=== PATIENT | male | born 1940 | race Caucasian/White ===

== ENCOUNTER → 2016-09-22 | Outpatient (CLI) | payer MEDICARE, OTHER | END | disposition home or self-care (01) | LOC: GMAM 11:03 | PROVIDERS: ATTEND Family Medicine | DX: Z12.5 Encounter for screening for malignant neoplasm of prostate (principal) ==

== ENCOUNTER → 2016-10-05 | Outpatient (CLI) | payer MEDICARE, OTHER ==
--- NOTE | 2016-10-05 14:55 | US ---
EXAM DESCRIPTION: Aorta CLINICAL HISTORY: 76 years Male, HISTORY OF TOBACCO USE TECHNIQUE: Grayscale, color Doppler and spectral Doppler imaging of the abdominal aorta was performed. FINDINGS: Atherosclerotic disease noted throughout today's exam. The proximal abdominal aorta measures 2.5 x 2.8 cm. The mid abdominal aorta measures 1.8 x 2.6 cm in the distal abdominal aorta measures 2.4 x 2.0 cm in diameter. 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 Electronically signed by: Duke Callahan MD 10/05/2016 2:55 PM CDT
== END | disposition home or self-care (01) ==
LOC: US 09:09
PROVIDERS: ATTEND Family Medicine
DX: Z87.891 Personal history of nicotine dependence (principal); I25.10 Atherosclerotic heart disease of native coronary artery without angina pectoris

== ENCOUNTER → 2017-10-21 | Outpatient (CLI) | payer MEDICARE, OTHER | LOC: GMAM 11:08 | PROVIDERS: ATTEND Family Medicine | DX: Z12.5 Encounter for screening for malignant neoplasm of prostate (principal) ==

== ENCOUNTER → 2018-04-25 | Outpatient (CLI) | payer MEDICARE, OTHER | LOC: GMAM 11:31 | PROVIDERS: ATTEND Family Medicine | DX: R53.82 Chronic fatigue, unspecified (principal) ==

== ENCOUNTER → 2018-05-09 | Outpatient (CLI) | payer MEDICARE, OTHER ==
--- NOTE | 2018-05-10 04:52 | US ---
Procedure: US HEAD NECK SOFT TISSUE Exam Date: 05/09/2018 Ordering Provider: DELILAH VALVERDE Clinical Indication: NECK MASS Comparison: None Technique: Real time ultrasound was utilized for evaluation of the soft tissues of the left posterior neck . Findings: Sonographic survey of the soft tissues of the left side of the posterior neck at the site of patient's palpable complaint demonstrates a 1.7 x 1.5 x 1.0 cm hypoechoic heterogeneous avascular mass with posterior acoustic enhancement. There is suggestion of a dermal nidus. IMPRESSION: 1. Mass in the posterior soft tissues of the left side of the neck may represent an epidermal inclusion cyst or sebaceous cyst. Electronically signed by: Simba Fuentes MD 05/10/2018 4:51 AM [facility]
== END ==
LOC: US 15:07
PROVIDERS: ATTEND Family Medicine
DX: R22.9 Localized swelling, mass and lump, unspecified (principal)

== ENCOUNTER → 2019-01-24 | Outpatient (CLI) | payer MEDICARE, OTHER | LOC: GMAM 11:22 | PROVIDERS: ATTEND Family Medicine | DX: Z12.5 Encounter for screening for malignant neoplasm of prostate (principal); I10 Essential (primary) hypertension ==

== ENCOUNTER → 2019-11-20 | Outpatient (CLI) | payer MEDICARE, OTHER | LOC: GMAM 11:20 | PROVIDERS: ATTEND Family Medicine | DX: R71.8 Other abnormality of red blood cells (principal); Z12.5 Encounter for screening for malignant neoplasm of prostate; D50.8 Other iron deficiency anemias; E53.8 Deficiency of other specified B group vitamins; E78.2 Mixed hyperlipidemia; I10 Essential (primary) hypertension | CPT/HCPCS: 82607; 82746; 83540; 83550; G0103 ==

== ENCOUNTER 2020-03-15 05:19 | Day surgery (SDC) | payer MEDICARE, OTHER ==
[2020-03-15] MEDS ORDERED: LACTATED RINGERS 1,000 ML ONE (06:38)
[2020-03-15] MEDS ORDERED: PROPOFOL 200 MG/20 ML VIAL IV ONE (07:00)
[2020-03-15] MEDS ORDERED: LIDOCAINE 1% 10 ML VIAL INJ ONE (07:00)
[2020-03-15] MEDS ORDERED: LACTATED RINGERS 1,000 ML IVS ONE (08:15)
--- NOTE | 2020-03-15 10:07 | OP ---
DATE OF PROCEDURE: 03/15/20 PREOPERATIVE DIAGNOSIS: 1. Screening colonoscopy. POSTOPERATIVE DIAGNOSIS: 1. Multiple colonic polyps. PROCEDURE: 1. Colonoscopy with multiple biopsies and polyp excisions. SURGEON: Giovanny Terrell MD ANESTHESIA: General. FINDINGS: There were multiple polyps primarily from 20 cm and distal. Proximal ascending colon had one polyp that was excised. The mid ascending colon had a larger 4 mm polyp that was taken with a snare. The transverse colon had a polyp approximately 2 mm excised with forceps. At 32 cm, a 2 mm polyp was removed with forceps. From the rectosigmoid at 20 cm down to the anal canal, there were at least 20 polyps, a couple of small hyperplastic appearing tiny polyps may be remaining, but all significant were removed and sent in five separate containers representing 5 cm intervals. The patient tolerated the procedure well. He was awakened and taken to Recovery to be discharged. INDICATION: As stated. PROCEDURE: General anesthesia was induced in the lateral position. Digital rectal exam was normal. The colonoscope was inserted and immediately in the anal canal we identified multiple small polyps. We advanced without difficulty to the cecum. Upon withdrawal, we took the polyps that were seen as above. In all, only the mid ascending polyp appeared adenomatous as well as a single polyp at about 32 cm. The remainder were less suspicious, but, again, there were multiple, multiple in the rectosigmoid area. All that were significant were removed. With peristalsis and other, undoubtedly a few small hyperplastic appearing polyps may still remain behind folds, etc. The patient is 80 years old and we will discuss the findings once we get the final pathology. Retroflexion appeared normal, again, a couple of hyperplastic polyps which were able to remove upon withdrawal. The patient tolerated the procedure, will be awaked and taken to Recovery to be discharged. We will await final pathology. #[id number] cc: Jacinto Rojo MD [facility]
[2020-03-15 10:55] VITALS: BP 148/79; TEMP 96.8; O2SAT 97
== END 2020-03-15 10:40 | disposition home or self-care (01) ==
LOC: AMB 05:19
PROVIDERS: ATTEND Surgery
DX: Z12.11 Encounter for screening for malignant neoplasm of colon (principal); D12.2 Benign neoplasm of ascending colon; D12.3 Benign neoplasm of transverse colon; K63.5 Polyp of colon; I10 Essential (primary) hypertension; E78.00 Pure hypercholesterolemia, unspecified; F17.200 Nicotine dependence, unspecified, uncomplicated; Z79.82 Long term (current) use of aspirin; Z79.899 Other long term (current) drug therapy
CPT/HCPCS: 45380; 45385; 88305; J3490; J7120